=== PATIENT | female | born 1960 | race Caucasian/White ===

== ENCOUNTER 2019-02-08 10:21 | Emergency (ER) | payer SELFPAY ==
[~2019-02-08] VITALS: Ht 162.6 cm; Wt 86.2 kg
[2019-02-08] MEDS ORDERED: TETANUS-DIPTH-ACEL PERTUSSIS 0.5ML SYRG IM ONE (10:45)
[2019-02-08] MEDS ORDERED: cefTRIAXone 1GM/50ML D5W 50 ML IV ONE (10:45)
[2019-02-08] MEDS ORDERED: HYDROmorphone HCL 2 MG/ML VL IV ONE (11:15)
[2019-02-08] MEDS ORDERED: ONDANSETRON HCL 4 MG/2 ML VIAL IV ONE (11:15)
[2019-02-08] MEDS ORDERED: NEOMYCIN-BACITRACIN-POLYM UNITDOSE PKG TOP OINT TOP ONE (11:15)
[2019-02-08] MEDS ORDERED: LIDOCAINE 2%HCL (LOCAL ANESTH.) INJ 20ML MDV ID ONE (11:15)
[2019-02-08 11:31] LABS: Albumin 4.3 g/dL (3.4-5.0); Calcium 9.1 mg/dL (8.5-10.1); Potassium 3.7 mmol/L (3.5-5.1)
[2019-02-08 11:32] LABS: Basophils # (auto) 0 uL; Basophils % (auto) 0.8 % (0.0-2.0); Eosinophils # (auto) 0 uL; Eosinophils % (auto) 0.6 % (0.0-7.0); Hematocrit 42.6 % (36.0-46.0); Hemoglobin 14.1 g/dL (12.2-16.2); Lymphocytes # (auto) 2.1 uL; Lymphocytes % (auto) 39.3 % (10.0-50.0); Mean Corpuscular Hgb Conc. 33.2 g/dL (32.0-36.0); Mean Corpuscular Volume 87.5 fL (80.0-100.0); Monocytes # (auto) 0.3 uL; Monocytes % (auto) 5.9 % (0.0-12.0); Neutrophils # (auto) 2.8 uL; Neutrophils % (auto) 53.4 % (37.0-80.0); Nucleated Red Blood Cells % 0.2 %; Platelet Count (auto) 227 10^3/uL (140-450); Red Blood Cells 4.87 10^6/uL (4.0-5.20); Red Cell Distribution Width 13.6 % (11.8-14.3); White Blood Cell 5.3 10^3/uL (4.4-10.8)
[2019-02-08 11:34] LABS: BUN/Creatinine Ratio 21.3; Bilirubin, Total 0.8 mg/dL (0.2-1.0); Total Protein 7.7 g/dL (6.4-8.2)
[2019-02-08] MEDS ORDERED: ACETAMINOPHEN 325 MG TAB PO ONE ×2 (12:45)
[2019-02-08 12:57] VITALS: BP 144/90
== END 2019-02-08 13:32 | disposition home or self-care (01) ==
LOC: EDBD 10:21 → ER 10:25
DX: S01.81XA Laceration without foreign body of other part of head, initial encounter (principal); Z90.89 Acquired absence of other organs; W19.XXXA Unspecified fall, initial encounter; Y93.89 Activity, other specified; Y99.8 Other external cause status; Y92.89 Other specified places as the place of occurrence of the external cause; Z88.0 Allergy status to penicillin
CPT/HCPCS: 12017; 36415; 80053; 85025; 90715; 96365; 96366; 99284; J0696; J7030